=== PATIENT | male | born 1975 | race Hispanic/Latino ===

== ENCOUNTER 2018-02-20 11:11 | Outpatient (CLI) | payer OTHER ==
--- NOTE | 2018-02-20 13:18 | RAD ---
LEFT SHOULDER 3 VIEWS: Date: 02/20/18 HISTORY: 42-year-old male with history of left shoulder pain following an injury 5 months ago. FINDINGS: Mild degenerative changes. No fracture or dislocation. IMPRESSION: Mild degenerative changes without fracture or dislocation. POS: [facility]
== END 2018-02-20 11:12 | disposition home or self-care (01) ==
LOC: MADRAD 11:11
PROVIDERS: ATTEND Family Medicine
DX: M75.42 Impingement syndrome of left shoulder (principal)

== ENCOUNTER 2021-09-01 12:04 | Emergency (ER) | payer OTHER ==
[2021-09-01 12:45] LABS: #Basophils 0.1 thou/uL (0.0-0.2); #Eosinphils 0.1 thou/uL (0.0-0.7); #Lymphocytes 2.8 thou/uL (1.20-3.40); #Monocytes 0.4 thou/uL (0.11-0.59); #Neutrophils 3.3 thou/uL (1.40-6.50); %Basophils 0.9 % (0.0-1.0); %Eosinophils 1.1 % (0.0-10.0); %Neutrophils 49.9 % (42.0-75.0); Hemoglobin 13.1 g/dL (14.0-18.0); Mean Corpuscular HGB CONC 31.4 g/dL (32.0-36.0); Mean Corpuscular Hemoglobin 30.2 pg (27.0-31.0); Mean Corpuscular Volume 95.9 fL (78.0-98.0); Mean Platelet Volume 8.6 fL (7.4-10.4); Platelet Count 285 thou/uL (130-400); RBC Distribution Width 11.9 % (11.5-14.5); Red Blood Cell (RBC) Count 4.36 mill/uL (4.70-6.10); White Blood Cell (WBC) Count 6.6 thou/uL (4.8-10.8)
[2021-09-01 12:51] LABS: INR-International Normal Ratio 2.5; Prothrombin Time 27.4 sec (12.0-14.7)
[2021-09-01 12:52] LABS: PTT 50.4 sec (22.9-36.1)
[2021-09-01] MEDS ORDERED: Aspirin Chewable 81 MG TAB ONE (12:54)
[2021-09-01 13:00] LABS: ALT (SGPT) 35 U/L (8-55); AST (SGOT) 21 U/L (5-34); Albumin 4.8 g/dL (3.5-5.0); Alkaline Phosphatase 60 U/L (40-110); Anion Gap 14 mmol/L (10-20); BUN (Urea Nitrogen) 12 mg/dL (8.9-20.6); Bilirubin, Total 0.4 mg/dL (0.2-1.2); Calc. Creatinine Clearance 0 mL/min (70-130); Calcium 9.8 mg/dL (7.8-10.44); Carbon Dioxide 25 mmol/L (22-29); Chloride 103 mmol/L (98-107); Globulin 2.5 g/dL (2.4-3.5); Glucose 201 mg/dL (70-105); Potassium 4.6 mmol/L (3.5-5.1); Protein, Total 7.3 g/dL (6.0-8.3); Sodium 137 mmol/L (136-145)
== END 2021-09-01 16:30 | disposition home or self-care (01) ==
LOC: MADERS 12:04
DX: R07.9 Chest pain, unspecified (principal); I10 Essential (primary) hypertension; E11.9 Type 2 diabetes mellitus without complications; E78.00 Pure hypercholesterolemia, unspecified; Z79.84 Long term (current) use of oral hypoglycemic drugs; Z79.899 Other long term (current) drug therapy
CPT/HCPCS: 36415; 71045; 80053; 84484; 85025; 85610; 85730; 93005; 94760

== ENCOUNTER 2022-02-21 11:11 | Outpatient (CLI) | payer OTHER ==
[2022-02-21 11:46] LABS: Bilirubin Negative (Negative); Blood, Urine Trace (Negative); Clarity Clear (Clear); Glucose, Urine (Dipstick) Negative (Negative); Ketone, Urine Negative (Negative); Leukocyte Negative (Negative); Nitrite Negative (Negative); Protein, Urine (Dipstick) Negative (Neg-Trace); Urobilinogen 0.2 mg/dL (Less than 2); pH, Urine 5.5 (5.0-9.0)
[2022-02-21 11:49] LABS: INR-International Normal Ratio 2.3; Prothrombin Time 26.1 sec (12.0-14.7)
[2022-02-21 11:55] LABS: #Basophils 0.1 thou/uL (0.0-0.2); #Eosinphils 0.1 thou/uL (0.0-0.7); #Lymphocytes 2.4 thou/uL (1.20-3.40); #Monocytes 0.4 thou/uL (0.11-0.59); #Neutrophils 3.2 thou/uL (1.40-6.50); %Basophils 1.1 % (0.0-1.0); %Eosinophils 1.9 % (0.0-10.0); %Lymphocytes 38.6 % (21.0-51.0); %Monocytes 6.9 % (0.0-10.0); %Neutrophils 51.5 % (42.0-75.0); Hemoglobin 13.8 g/dL (14.0-18.0); Mean Corpuscular HGB CONC 31.2 g/dL (32.0-36.0); Mean Corpuscular Hemoglobin 29.3 pg (27.0-31.0); Platelet Count 245 thou/uL (130-400); RBC Distribution Width 12.4 % (11.5-14.5); Red Blood Cell (RBC) Count 4.72 mill/uL (4.70-6.10); White Blood Cell (WBC) Count 6.2 thou/uL (4.8-10.8)
[2022-02-21 12:03] LABS: RBC/HPF 0-3 HPF (0-3); Squamous Epithelial 0-3 HPF (0-3); WBC/HPF 0-3 HPF (0-3)
[2022-02-21 12:04] LABS: Bacteria/HPF Rare-Few HPF (None Seen)
[2022-02-21 12:16] LABS: Anisocytosis SLIGHT = 6-15 cells (100X) (0-5/hpf)
[2022-02-21 12:17] LABS: Platelet Morphology Comment Appears Adequate
[2022-02-21 12:23] LABS: ALT (SGPT) 39 U/L (8-55); AST (SGOT) 28 U/L (5-34); Albumin 4.9 g/dL (3.5-5.0); Alkaline Phosphatase 63 U/L (40-110); Anion Gap 12 mmol/L (10-20); BUN (Urea Nitrogen) 14 mg/dL (8.9-20.6); Bilirubin, Total 0.4 mg/dL (0.2-1.2); Calc. Creatinine Clearance 0 mL/min (70-130); Carbon Dioxide 28 mmol/L (22-29); Cardiac Risk 4.3 (Less than 4.5); Chloride 105 mmol/L (98-107); Cholesterol 195 mg/dl (< 200 Desired); Globulin 2.5 g/dL (2.4-3.5); Glucose 130 mg/dL (70-105); HDL Cholesterol 45 mg/dL (>60 Neg Risk); LDL Cholesterol, Calculated 117 mg/dL; Potassium 4.6 mmol/L (3.5-5.1); Protein, Total 7.4 g/dL (6.0-8.3); Sodium 140 mmol/L (136-145); Triglycerides 167 mg/dL (Less than 150)
[2022-02-21 13:00] LABS: Thyroid Stimulating Hormone 2.3777 uIU/mL (0.35-4.94)
[2022-02-21 17:11] LABS: Hemoglobin A1c 6.6 % (4.0-6.0)
[2022-02-21 17:58] LABS: Free T4 (Free Thyroxine) 1.04 ng/dL (0.70-1.48)
[2022-02-21 17:59] LABS: PSA-Asymptomatic (SCREENING) 0.39 ng/mL (0-4.0)
== END 2022-02-21 11:12 | disposition home or self-care (01) ==
LOC: MADLAB 11:11
PROVIDERS: ATTEND Family Medicine
DX: Z13.1 Encounter for screening for diabetes mellitus (principal); E78.1 Pure hyperglyceridemia; E78.41 Elevated Lipoprotein(a); Z95.2 Presence of prosthetic heart valve
CPT/HCPCS: 36415; 80050; 80061; 81001; 83036; 84439; 84481; 85610; G0103